=== PATIENT | female | born 1945 | race Caucasian/White ===

== ENCOUNTER 2018-06-02 13:22 | Inpatient (IN) | payer MEDICARE, MEDICAID ==
[~2018-06-02] VITALS: Ht 175.3 cm; Wt 58.5 kg
[2018-06-02] MEDS ORDERED: SODIUM CHLORIDE 0.9% 1,000 ML IV ONE (14:51)
[2018-06-02] MEDS ORDERED: KETOROLAC 30MG/ML VIAL IV STA (14:51)
[2018-06-02] MEDS ORDERED: ONDANSETRON HCL 4MG/2ML INJ IV STA (14:51)
[2018-06-02] MEDS ORDERED: MORPHINE SULFATE 4 MG/ML CPJ (NOT FOR IM USE) IV STA (14:51)
[2018-06-02] MEDS ORDERED: FAMOTIDINE 20MG/2ML VIAL IV STA (14:51)
[2018-06-02 15:55] LABS: BASOPHILS % 0.5 % (0.0-2.0); EOSINOPHILS % 2.7 % (0.0-5.0); HEMATOCRIT. 38.4 % (36.0-48.0); HEMOGLOBIN. 13.3 g/dL (12.0-16.0); LYMPHOCYTES % 35.8 % (20.0-50.0); MEAN CORPUSCULAR HEMOGLOBIN 30.6 pg (28.0-32.0); MEAN CORPUSCULAR VOLUME 88.3 fL (81.0-99.0); MONOCYTES % 7.6 % (2.0-8.0); NEUTROPHILS % 53.4 % (40.0-76.0); PLATELET 98 x1000/uL (130-400); RED BLOOD CELL COUNT 4.35 mill/uL (4.2-5.4); RED CELL DISTRIBUTION WIDTH 13.2 % (11.6-14.6)
[2018-06-02 16:00] LABS: CHLORIDE 110 mEq/L (98-107); INR 1.1; PROTHROMBIN TIME 11.1 sec (9.1-11.1)
[2018-06-02] MEDS ORDERED: LORAZEPAM 2MG/ML CPJ IV ONE (17:00)
[2018-06-02] MEDS ORDERED: MAGNESIUM/ALUMINUM HYDROXIDE/SIMETHICONE 30ML UDC PO PRN (19:30)
[2018-06-02] MEDS ORDERED: NA PHOS,M-B/NA PHOS,DI-BA ENEMA 118ML PR PRN (19:30)
[2018-06-02] MEDS ORDERED: ONDANSETRON HCL 4MG/2ML INJ IV PRN (19:30)
[2018-06-02] MEDS ORDERED: DOCUSATE SODIUM 100MG CAPSULE PO PRN (19:30)
[2018-06-02] MEDS ORDERED: CLONIDINE 0.1MG TABLET PO PRN (19:30)
[2018-06-02] MEDS ORDERED: ACETAMINOPHEN 325MG TABLET PO PRN (19:30)
[2018-06-02 22:00] VITALS: BP 154/66
[2018-06-02] MEDS: LORAZEPAM 2MG/ML CPJ IV PRN (22:33)
[2018-06-02 23:40] VITALS: BP 154/66
[2018-06-03] VITALS: BP 162/76
[2018-06-03] MEDS: DEXT 5%/0.45% NACL 1000ML 1,000 ML IV SCH ×2 (01:33→08:43)
[2018-06-03 04:00] VITALS: BP 142/65
[2018-06-03] MEDS: LORAZEPAM 2MG/ML CPJ IV PRN ×2 (05:21→22:40)
[2018-06-03 08:00] VITALS: BP 135/59
[2018-06-03] MEDS: PANTOPRAZOLE SODIUM 40 MG/VIAL IV SCH (09:00)
[2018-06-03] MEDS ORDERED: LORAZEPAM 1MG TABLET PO SCH (10:45)
[2018-06-03 12:00] VITALS: BP 138/57
[2018-06-03] MEDS ORDERED: HALOPERIDOL LACTATE 5MG/ML VIAL IM SCH (12:15)
[2018-06-03 16:00] VITALS: BP 138/72
[2018-06-03 20:00] VITALS: BP 100/68
[2018-06-04] VITALS: BP 102/71
[2018-06-04 04:00] VITALS: BP 112/71
[2018-06-04] MEDS: LORAZEPAM 2MG/ML CPJ IV PRN (04:02)
[2018-06-04 07:42] LABS: BASOPHILS % 0.3 % (0.0-2.0); EOSINOPHILS % 2.2 % (0.0-5.0); HEMATOCRIT. 38.8 % (36.0-48.0); HEMOGLOBIN. 13.3 g/dL (12.0-16.0); LYMPHOCYTES % 29.8 % (20.0-50.0); MEAN CORPUSCULAR HEMOGLOBIN 30.2 pg (28.0-32.0); MEAN CORPUSCULAR VOLUME 87.7 fL (81.0-99.0); MONOCYTES % 7.8 % (2.0-8.0); NEUTROPHILS % 59.9 % (40.0-76.0); PLATELET 98 x1000/uL (130-400); RED BLOOD CELL COUNT 4.42 mill/uL (4.2-5.4)
[2018-06-04 08:00] VITALS: BP 137/76
[2018-06-04 08:06] LABS: CHLORIDE 108 mEq/L (98-107)
[2018-06-04] MEDS: PANTOPRAZOLE SODIUM 40 MG/VIAL IV SCH (08:20)
[2018-06-04] MEDS: DEXT 5%/0.45% NACL 1000ML 1,000 ML IV SCH (11:23)
[2018-06-04 12:00] VITALS: BP 126/65
[2018-06-04 16:00] VITALS: BP 141/74
[2018-06-04 20:00] VITALS: BP 140/69
[2018-06-05] VITALS: BP 115/64
[2018-06-05 04:00] VITALS: BP 126/66
[2018-06-05 08:00] VITALS: BP 127/71
[2018-06-05] MEDS: PANTOPRAZOLE SODIUM 40 MG/VIAL IV SCH (08:35)
[2018-06-05 12:00] VITALS: BP 137/72
[2018-06-05] MEDS: DEXT 5%/0.45% NACL 1000ML 1,000 ML IV SCH (13:11)
[2018-06-05 16:00] VITALS: BP 142/70
[2018-06-05 20:00] VITALS: BP 132/68
[2018-06-06] VITALS: BP 128/71
[2018-06-06 04:00] VITALS: BP 158/80
[2018-06-06 08:00] VITALS: BP 110/77
[2018-06-06] MEDS: PANTOPRAZOLE SODIUM 40 MG/VIAL IV SCH (08:56)
[2018-06-06 12:00] VITALS: BP 102/83
[2018-06-06] MEDS: LORAZEPAM 2MG/ML CPJ IV PRN (15:29)
[2018-06-06 16:00] VITALS: BP 155/68
[2018-06-06] MEDS ORDERED: HALOPERIDOL LACTATE 5MG/ML VIAL IM NR (16:00)
[2018-06-06] MEDS: DEXT 5%/0.45% NACL 1000ML 1,000 ML IV SCH (16:43)
[2018-06-07] VITALS: BP 137/85
[2018-06-07] MEDS: LORAZEPAM 2MG/ML CPJ IV PRN (00:50)
[2018-06-07 04:00] VITALS: BP 144/67
[2018-06-07 08:00] VITALS: BP 120/60
[2018-06-07] MEDS: PANTOPRAZOLE SODIUM 40 MG/VIAL IV SCH (09:00)
[2018-06-07 12:00] VITALS: BP 106/70
[2018-06-07 16:00] VITALS: BP 142/82
[2018-06-07 20:00] VITALS: BP 123/69
[2018-06-08] VITALS: BP 145/72
[2018-06-08 04:00] VITALS: BP 127/67
[2018-06-08 08:00] VITALS: BP 158/76
[2018-06-08] MEDS: PANTOPRAZOLE SODIUM 40 MG/VIAL IV SCH (08:21)
[2018-06-08 12:00] VITALS: BP 144/76
[2018-06-08 16:00] VITALS: BP 148/86
[2018-06-08 20:00] VITALS: BP 146/76
[2018-06-09] VITALS: BP 137/66
[2018-06-09 04:00] VITALS: BP 129/68
[2018-06-09 08:00] VITALS: BP 109/58
[2018-06-09] MEDS: DEXT 5%/0.45% NACL 1000ML 1,000 ML IV SCH (08:45)
[2018-06-09] MEDS: PANTOPRAZOLE SODIUM 40 MG/VIAL IV SCH (08:47)
[2018-06-09 12:00] VITALS: BP 118/68
[2018-06-09 16:00] VITALS: BP_SYST 92; BP_SYST 95; BP_DIAS 59; BP_DIAS 60
[2018-06-09 20:00] VITALS: BP 132/66
[2018-06-10] VITALS: BP 126/68
[2018-06-10] MEDS: DEXT 5%/0.45% NACL 1000ML 1,000 ML IV SCH ×2 (00:19→10:42)
[2018-06-10 04:00] VITALS: BP 114/78
[2018-06-10 08:00] VITALS: BP 139/64
[2018-06-10] MEDS: PANTOPRAZOLE SODIUM 40 MG/VIAL IV SCH (08:20)
[2018-06-10 12:00] VITALS: BP 158/80
[2018-06-10 16:00] VITALS: BP 160/87
[2018-06-10 20:00] VITALS: BP 158/89
[2018-06-11] VITALS: BP 116/63
[2018-06-11 04:00] VITALS: BP 105/66
[2018-06-11] MEDS: DEXT 5%/0.45% NACL 1000ML 1,000 ML IV SCH ×2 (06:47→16:31)
[2018-06-11 08:00] VITALS: BP 106/48
[2018-06-11] MEDS: PANTOPRAZOLE SODIUM 40 MG/VIAL IV SCH (09:04)
[2018-06-11 12:00] VITALS: BP 105/57
[2018-06-11 16:00] VITALS: BP 117/61
[2018-06-11 20:00] VITALS: BP 133/67
[2018-06-12] VITALS: BP 110/53
[2018-06-12 04:00] VITALS: BP 113/69
[2018-06-12 08:00] VITALS: BP 134/60
[2018-06-12] MEDS: PANTOPRAZOLE SODIUM 40 MG/VIAL IV SCH (10:13)
[2018-06-12 12:00] VITALS: BP 126/64
[2018-06-12 16:00] VITALS: BP 119/86
[2018-06-12] MEDS: DEXT 5%/0.45% NACL 1000ML 1,000 ML IV SCH (17:55)
[2018-06-12 20:00] VITALS: BP 125/61
[2018-06-13] VITALS: BP 123/73
[2018-06-13 04:00] VITALS: BP 161/71
[2018-06-13 08:00] VITALS: BP 134/33
[2018-06-13] MEDS: PANTOPRAZOLE SODIUM 40 MG/VIAL IV SCH (08:33)
[2018-06-13] MEDS ORDERED: HALOPERIDOL LACTATE 5MG/ML VIAL IM PRN (09:45)
[2018-06-13] MEDS: DEXT 5%/0.45% NACL 1000ML 1,000 ML IV SCH (11:36)
[2018-06-13 12:00] VITALS: BP 125/55
[2018-06-13 16:00] VITALS: BP 153/70
[2018-06-13 19:35] VITALS: BP 131/60
== END 2018-06-13 20:02 | DRG 249 ==
LOC: ER 13:22 → 6EST 18:13 → EDBEDREQ 18:17 → EDBEDREQTM 18:17 → EDBEDREQSVC 18:20 → ENRESERV 19:10 → 6EST 06-03 07:55
PROVIDERS: ADMIT Hospitalist; ATTEND Hospitalist
DX: A08.4 Viral intestinal infection, unspecified (principal); G93.40 Encephalopathy, unspecified; L89.153 Pressure ulcer of sacral region, stage 3; E87.0 Hyperosmolality and hypernatremia; L89.310 Pressure ulcer of right buttock, unstageable; F03.90 Unspecified dementia, unspecified severity, without behavioral disturbance, psychotic disturbance, mood disturbance, and anxiety; E44.1 Mild protein-calorie malnutrition; E87.1 Hypo-osmolality and hyponatremia; I10 Essential (primary) hypertension; Z82.49 Family history of ischemic heart disease and other diseases of the circulatory system; Z79.899 Other long term (current) drug therapy; Z68.1 Body mass index [BMI] 19.9 or less, adult
CPT/HCPCS: 36415; 71045; 74176; 80053; 83605; 83690; 83880; 84134; 84484; 85025; 85610; 87040; 93005; 93970; 96374; 96375; 99285; A6261; C9113; J1630; J1885; J2060; J2270; J2405; J3490; J7030